=== PATIENT | female | born 1980 | race Caucasian/White ===

== ENCOUNTER 2017-01-09 09:16 | Outpatient (CLI) | payer MEDICARE, MEDICAID ==
--- NOTE | 2017-01-09 13:34 | ULT ---
LEFT BREAST DIAGNOSTIC ULTRASOUND: Date: 01/09/17 INDICATION: Palpable abnormality and pain in the left breast at 11 o'clock position. COMPARISON: Prior diagnostic evaluation dated 03/13/16 and a diagnostic mammogram dated 01/09/17. FINDINGS: Within the region of palpable interest in left breast at 11 o'clock position, 10.0 cm from the nippl e, is an oval hypoechoic well circumscribed nonvascular mass measuring 0.5 x 0.6 x 0.3 cm. IMPRESSION: BIRADS 4: Suspicious Abnormality - Biopsy Should Be Considered Recommend ultrasound guided cyst aspiration versus biopsy. There is a hypoechoic well circumscribed mass within the left breast 11 o'clock position, 10.0 cm fr om the nipple, that corresponds to the palpable region of interest. Patient was counseled on the fin dings prior to leaving the clinic. Dr. Stallings was contacted with the findings at 1035 hours on 12/31 . POS: [facility]
--- NOTE | 2017-01-09 13:36 | MMO ---
BILATERAL DIAGNOSTIC BREAST EVALUATION: Date: 01/09/17 INDICATION: Pain and palpable abnormality in left breast 11 o'clock position. COMPARISON: Prior exam dated 03/13/16. FINDINGS: Interpretation of this exam was assisted with computer-aided detection. The breast parenchyma is heterogeneously dense, which limits the sensitivity of mammography. No suspicious mammographic abnormality is seen within the region of palpable interest. Sonogram demo nstrates a small, 5.0 mm, hypoechoic mass near the region of palpable interest left breast 11 o'cloc k position, 10.0 cm from the nipple. This may reflect a complex cyst. IMPRESSION: BIRADS 4: Suspicious Abnormality - Biopsy Should Be Considered Recommend ultrasound guided cyst aspiration versus biopsy. Dr. Stallings was contacted with the findings at 1035 hours on 03/13/16. The patient was counseled on the findings prior to leaving the department. POS: [facility]
--- NOTE | 2017-01-09 15:00 | ULT ---
ULTRASOUND GUIDED LEFT BREAST CYST ASPIRATION VERSUS BIOPSY: Date: 01/09/17 COMPARISON: Diagnostic evaluation dated 01/09/17. TECHNIQUE: Informed consent was obtained. Preprocedure ultrasound demonstrated a suspicious complex cyst within the left breast 11 o'clock position, 10.0 cm from the nipple. The site overlying this lesion was pr epped and draped in the usual sterile fashion. Buffered 1% lidocaine was administered to the overlyi ng subcutaneous tissues. Under ultrasound guidance, a 20 gauge spinal needle was guided down into th e lesion. The aspiration proved unsuccessful with the 20 gauge spinal needle. Following this, an 18 gauge spinal needle was guided down into the lesion. Aspiration of the lesion proved unsuccessful wi th this needle. Then, a small incision was made, and a 14 gauge core biopsy gun was guided down to t he lesion. Three separate core samples were obtained through the lesion. A small metallic clip was p laced within the lesion following the biopsy. Pressure was held at the biopsy site until hemostasis was obtained. The patient tolerated the procedure without difficulty. IMPRESSION: BIRADS 4: Suspicious Abnormality - Biopsy Should Be Considered Successful ultrasound guided core biopsy of the left breast lesion seen within the 11 o'clock positi on, 10.0 cm from the nipple. POS: [facility]
--- NOTE | 2017-01-09 15:02 | MMO ---
LEFT BREAST POST CLIP MAMMOGRAM: Date: 01/09/17 INDICATION: Status post ultrasound guided core biopsy of a lesion in the left breast at 11 o'clock position, 10. 0 cm from the nipple. FINDINGS: The biopsy clip is deployed within the region of the ultrasound guided biopsy. A small amount of hem atoma is seen within the left breast 11 o'clock position. IMPRESSION: BIRADS 4: Suspicious Abnormality - Biopsy Should Be Considered Successful ultrasound guided core biopsy. POS: [facility]
== END 2017-01-09 09:17 | disposition home or self-care (01) ==
LOC: MAMMO 09:16
PROVIDERS: ATTEND Family Medicine
DX: N63.20 Unspecified lump in the left breast, unspecified quadrant (principal); N64.59 Other signs and symptoms in breast
CPT/HCPCS: 19083; 76642; 88305; G0204; G0206; 77066

== ENCOUNTER 2019-02-20 09:16 | Outpatient (CLI) | payer MEDICARE | END 2019-02-20 09:17 | disposition home or self-care (01) | LOC: CTENTCT 09:16 | PROVIDERS: ATTEND Otolaryngology Plastic Surgery within the Head & Neck | DX: J32.8 Other chronic sinusitis (principal) | CPT/HCPCS: 70486 ==

== ENCOUNTER 2019-06-02 14:58 | Emergency (ER) | payer MEDICARE | END 2019-06-02 15:57 | disposition home or self-care (01) | LOC: ERS 14:58 | DX: L98.9 Disorder of the skin and subcutaneous tissue, unspecified (principal); F17.210 Nicotine dependence, cigarettes, uncomplicated; F43.10 Post-traumatic stress disorder, unspecified; F32.9 Major depressive disorder, single episode, unspecified; Z79.899 Other long term (current) drug therapy | CPT/HCPCS: 99281 ==